=== PATIENT | female | born 1930 | race Caucasian/White ===

== ENCOUNTER 2017-10-04 15:23 | Inpatient (IN) | payer OTHER, MEDICARE ==
[~2017-10-04 15:23] MED LIST: AMLO5TAB22 PO; CALC0.25 PO; CALCTAB32 PO; CENTTAB9 PO; DYAZ PO; GLUC500C3 PO
[2017-10-04 15:30] VITALS: BP 143/58; PULSE 130; RESP 20; TEMP 98; O2SAT 96
[2017-10-04] MEDS ORDERED: METOPROLOL TARTRATE 5 MG/5 ML VIAL IV PUSH ONE ×2 (16:00→16:30)
[2017-10-04 16:02] VITALS: PULSE 144; RESP 20; O2SAT 97
--- NOTE | 2017-10-04 16:12 | PD ---
HPI Chief Complaint: Chest Pain Time Seen by Provider: 15:52 Travel History International Travel<30 days: No Contact w/Intl Traveler<30days: No Traveled to known affect area: No History of Present Illness HPI 87 y/o female presents with chest pain and shortness of breath and sent from her doctor's office for new onset atrial fibrillation with RVR. He denies any other concurrent complaints. She states she is unsure when she was in the abnormal rhythm. She states she has been feeling short of breath and chest pain for a couple of days. She denies prior history of this. Quality is palpitations. Severity is in the 140s. She denies specific modifying factors but is a poor historian. [facility] Past Medical History Hypertension: Yes Past Surgical History Surgical History: No Previous Surgery Social History Alcohol Use: Yes Tobacco Use: No Substance Use: No Allergies-Medications (Allergen,Severity, Reaction): Coded Allergies: No Known Allergies (Verified Allergy, Unknown, 10/04/17) Reported Meds & Prescriptions Reported Meds & Active Scripts Active Reported Glucosamine Sulfate 1,000 Mg Tab 1,000 Mg PO HS Centrum Silver Adult 50+ (Multiple Vitamins W/ Minerals) 0.4 Mg-300 Mcg-250 Mcg Tab 1 Tab PO HS Calcium Citrate - Vit D Tablet (Calcium Citrate/Vitamin D3) 315 Mg Calcium-200 Unit Tablet 1 Tab PO HS Triamterene-Hydrochlorothiazide 37.5-25 Mg Tab 1 Tab PO DAILY Calcitriol 0.25 Mcg Cap 0.25 Mcg PO DAILY Amlodipine (Amlodipine Besylate) 5 Mg Tab 5 Mg PO DAILY Losartan (Losartan Potassium) 50 Mg Tab 50 Mg PO DAILY One Daily (Multiple Vitamin) 1 Tab 1 Tab PO DAILY Review of Systems Except as stated in HPI: all other systems reviewed are Neg Physical Exam Narrative GENERAL: 87-year-old female in no apparent distress SKIN: Focused skin assessment warm/dry. HEAD: Atraumatic. Normocephalic. EYES: No scleral icterus. No injection or drainage. ENT: No nasal bleeding or discharge. Mucous membranes pink and moist. NECK: Trachea midline. CARDIOVASCULAR: irregular rate and rhythm. RESPIRATORY: No accessory muscle use. Clear to auscultation. Breath sounds equal bilaterally at apices. GASTROINTESTINAL: Abdomen soft, non-tender, nondistended. MUSCULOSKELETAL: No obvious deformities. No clubbing. No cyanosis. No significant pedal edema NEUROLOGICAL: Awake. Moves all extremities. Normal speech. Data Data Last Documented VS Vital Signs Date Time Temp Pulse Resp B/P (MAP) Pulse Ox O2 Delivery O2 Flow Rate FiO2 10/04/17 16:30 130 10/04/17 16:13 16 96 Room Air 10/04/17 15:30 98.0 Orders Orders Electrocardiogram (10/04/17 15:33) Basic Metabolic Panel (Bmp) (10/04/17 15:33) Ckmb (Isoenzyme) Profile (10/04/17 15:33) Complete Blood Count With Diff (10/04/17 15:33) Magnesium (Mg) (10/04/17 15:33) Prothrombin Time / Inr (Pt) (10/04/17 15:33) Act Partial Throm Time (Ptt) (10/04/17 15:33) Troponin I (10/04/17 15:33) Chest, Pa & Lat (10/04/17 15:33) Magnesium (Mg) (10/04/17 15:52) Phosphorus (Po4) (10/04/17 15:52) Iv Access Insert/Monitor (10/04/17 15:52) Ecg Monitoring (10/04/17 15:52) Oximetry (10/04/17 15:52) B-Type Natriuretic Peptide (10/04/17 15:59) Metoprolol Tartrate Inj (Lopressor Inj) (10/04/17 16:00) Diltiazem (Cardizem) (10/04/17 16:30) Metoprolol Tartrate Inj (Lopressor Inj) (10/04/17 16:30) CKMB (10/04/17 15:40) CKMB% (10/04/17 15:40) Heparin Inj (Heparin Inj) (10/04/17 23:00) Heparin Inj (Heparin Inj) (10/04/17 23:00) Heparin-D5w 25,000 U/250 Ml (Heparin-D5w (10/04/17 17:00) Cbc No Diff, Includes Plts (10/07/17 06:00) Act Partial Throm Time (Ptt) (10/04/17 23:59) Occult Blood (Hemoccult) Stool (10/04/17 16:59) Admit Order (Ed Use Only) (10/04/17 17:14) Metoprolol Tartrate Inj (Lopressor Inj) (10/04/17 17:15) Diltiazem (Cardizem) (10/05/17 00:00) Labs Laboratory Tests Test 10/04/17 15:40 White Blood Count 8.3 TH/MM3 Red Blood Count 4.22 MIL/MM3 Hemoglobin 13.4 GM/DL Hematocrit 39.8 % Mean Corpuscular Volume 94.4 FL Mean Corpuscular Hemoglobin 31.8 PG Mean Corpuscular Hemoglobin Concent 33.7 % Red Cell Distribution Width 13.9 % Platelet Count 301 TH/MM3 Mean Platelet Volume 8.7 FL Neutrophils (%) (Auto) 63.1 % Lymphocytes (%) (Auto) 22.7 % Monocytes (%) (Auto) 11.4 % Eosinophils (%) (Auto) 2.1 % Basophils (%) (Auto) 0.7 % Neutrophils # (Auto) 5.2 TH/MM3 Lymphocytes # (Auto) 1.9 TH/MM3 Monocytes # (Auto) 0.9 TH/MM3 Eosinophils # (Auto) 0.2 TH/MM3 Basophils # (Auto) 0.1 TH/MM3 CBC Comment DIFF FINAL Differential Comment Prothrombin Time 11.4 SEC Prothromb Time International Ratio 1.1 RATIO Activated Partial Thromboplast Time 24.0 SEC Blood Urea Nitrogen 21 MG/DL Creatinine 1.34 MG/DL Random Glucose 102 MG/DL Calcium Level 10.0 MG/DL Magnesium Level 1.8 MG/DL Sodium Level 141 MEQ/L Potassium Level 4.1 MEQ/L Chloride Level 106 MEQ/L Carbon Dioxide Level 25.0 MEQ/L Anion Gap 10 MEQ/L Estimat Glomerular Filtration Rate 37 ML/MIN Total Creatine Kinase 114 U/L Creatine Kinase MB 3.0 NG/ML Troponin I LESS THAN 0.02 NG/ML MDM Medical Decision Making Medical Screen Exam Complete: Yes Emergency Medical Condition: Yes Medical Record Reviewed: Yes (pmh confirmed) Interpretation(s) EKG is in the 140s with atrial fibrillation without STEMI criteria CBC & BMP Diagram 10/04/17 15:40 Last 24 hours Impressions Chest X-Ray 10/04/17 7005 Signed Impressions: Service Date/Time: Wednesday, October 04, 2017 16:10 - CONCLUSION: No acute disease. Fer Pickett MD Differential Diagnosis Electrolyte abnormality, A. fib, SVT, TN, renal failure Narrative Course We will check blood work, chest x-ray, EKG and dose with IV metoprolol as we are out of IV Cardizem and discuss with cardiology Family updated and patient agrees to admission, will repeat IV metoprolol and give p.o. Cardizem given persistent tachycardia. Critical Care Narrative Aggregate critical care time was 35 minutes. Time to perform other separately billable procedures was not included in the critical care time. My time did not include minutes spent treating any other patients simultaneously or on activities that did not directly contribute to the patient's treatment. The services I provided to this patient were to treat and/or prevent clinically significant deterioration that could result in: Hypertension, TN, I provided critical care services requiring my management, as noted below: Chart data review, documentation time, medication orders and management, vital sign assessments/reviewing monitor data, ordering and reviewing lab tests, ordering and interpreting/reviewing x-rays and diagnostic studies, care of the patient and discussion of the patient with the admitting physicians. Physician Communication Physician Communication dr knox states to stop Norvasc and start on 60 mg of Cardizem every 6 with IV metoprolol as needed and admit to the hospitalist dr phan agrees to prior orders and also requests heparin drip dr flores agrees to admit Diagnosis Primary Impression: Atrial fibrillation with RVR Additional Impression: Chest pain Qualified Codes: R07.9 - Chest pain, unspecified Admitting Information Admitting Physician Requests: Admit Mahnaz Camacho MD Oct 04, 2017 16:12
[2017-10-04 16:13] VITALS: BP 137/79; PULSE 119; RESP 16; O2SAT 96
[2017-10-04 16:16] LABS: AUTOMATED NEUTROPHIL # 5.2 TH/MM3 (1.8-7.7); BASOPHIL # 0.1 TH/MM3 (0-0.2); BASOPHIL % 0.7 % (0.0-2.0); EOSINOPHIL # 0.2 TH/MM3 (0-0.4); EOSINOPHIL % 2.1 % (0.0-4.0); HEMATOCRIT 39.8 % (35.0-46.0); HEMOGLOBIN 13.4 GM/DL (11.6-15.3); LYMPH % 22.7 % (9.0-44.0); LYMPHOCYTE # 1.9 TH/MM3 (1.0-4.8); MEAN CELL VOLUME 94.4 FL (80.0-100.0); MEAN CORPUSCULAR HEMOGLOBIN 31.8 PG (27.0-34.0); MEAN CORPUSCULAR HGB CONC 33.7 % (32.0-36.0); MEAN PLATELET VOLUME 8.7 FL (7.0-11.0); MONO % 11.4 % (0.0-8.0); MONOCYTE # 0.9 TH/MM3 (0-0.9); NEUT % 63.1 % (16.0-70.0); PLATELET COUNT 301 TH/MM3 (150-450); RED BLOOD COUNT 4.22 MIL/MM3 (4.00-5.30); RED CELL DISTRIBUTION WIDTH 13.9 % (11.6-17.2); WHITE BLOOD COUNT 8.3 TH/MM3 (4.0-11.0)
--- NOTE | 2017-10-04 16:18 | RADRPT ---
EXAM DATE/TIME: 10/04/2017 16:10 [facility] COMPARISON: No previous studies available for comparison. INDICATIONS : Chest pain since last week. MEDICAL HISTORY : Hypertension. SURGICAL HISTORY : None. ENCOUNTER: Initial ACUITY: 1 week PAIN SCORE: 3/10 LOCATION: Bilateral chest FINDINGS: PA and lateral views of the chest demonstrate the lungs to be symmetrically aerated without evidence of mass, infiltrate or effusion. The cardiomediastinal contours are unremarkable. Osseous structure s are intact. CONCLUSION: No acute disease. Fer Pickett MD on October 04, 2017 at 16:16 Board Certified Radiologist. This report was verified electronically.
[2017-10-04 16:29] LABS: INTERNATIONAL NORMALIZED RATIO 1.1 RATIO; PROTHROMBIN TIME - PATIENT 11.4 SEC (9.8-11.6)
[2017-10-04 16:30] VITALS: PULSE 130
[2017-10-04] MEDS ORDERED: DILTIAZEM HCL 60 MG TAB PO ONE (16:30)
[2017-10-04 16:41] LABS: BLOOD UREA NITROGEN 21 MG/DL (7-18); CHLORIDE 106 MEQ/L (98-107); CREATININE 1.34 MG/DL (0.50-1.00); GLOMERULAR FILTRATION RATE 37 ML/MIN (>89); GLUCOSE,RANDOM 102 MG/DL (74-106); MAGNESIUM 1.8 MG/DL (1.5-2.5); SODIUM (NA) 141 MEQ/L (136-145)
[2017-10-04 16:45] LABS: TROPONIN I LESS THAN 0.02 NG/ML (0.02-0.05)
[2017-10-04] MEDS ORDERED: HEPARIN-D5W 25,000 U/250 ML 250 ML IV PRN (17:00)
[2017-10-04] MEDS ORDERED: BISACODYL 10 MG SUPP RECTAL PRN (17:15)
[2017-10-04] MEDS ORDERED: SENNOSIDES 8.6 MG TAB PO PRN (17:15)
[2017-10-04] MEDS ORDERED: LACTULOSE SYRUP 20 GM/30 ML CUP PO PRN (17:15)
[2017-10-04] MEDS ORDERED: METOPROLOL TARTRATE 5 MG/5 ML VIAL IV PUSH PRN (17:15)
[2017-10-04] MEDS ORDERED: NALOXONE HCL 0.4 MG/ML AMP IV PUSH PRN (17:15)
[2017-10-04] MEDS ORDERED: MAGNESIUM HYDROXIDE SUSP 30 ML CUP PO PRN (17:15)
[2017-10-04] MEDS ORDERED: SODIUM CHLORIDE 0.9% FLUSH 10 ML FLUSH IV FLUSH PRN (17:15)
[2017-10-04] MEDS ORDERED: LOSA50TA PO (17:24)
[2017-10-04] MEDS ORDERED: TRIA37.5 PO (17:24)
[2017-10-04] MEDS ORDERED: CALCTAB PO (17:24)
[2017-10-04] MEDS ORDERED: MULT-207 PO (17:24)
[2017-10-04] MEDS ORDERED: CALC0.25 PO (17:24)
[2017-10-04] MEDS ORDERED: GLUC1TAB16 PO (17:24)
[2017-10-04] MEDS ORDERED: MULT1TAB PO (17:24)
[2017-10-04] MEDS ORDERED: AMLO5TAB2 PO (17:24)
--- NOTE | 2017-10-04 18:21 | HHI.HP ---
HPI Service [facility] Primary Care Physician Meenakshi Sandoval MD Admission Diagnosis Atrial flutter with RVR, chest pain Diagnoses: (1) Atrial fibrillation with RVR Diagnosis: Principal (2) Chest pain Diagnosis: Principal (3) SOB (shortness of breath) on exertion Chief Complaint: My doctor sent me here Travel History International Travel<30 Days: No Contact w/Intl Traveler <30 Da: No Traveled to Known Affected Are: No History of Present Illness Written by Fina Mcnamara, acting as scribe for Dr. Bernal on 10/04/17 at 17:54. 87-year-old female with PMH of HTN who presents to the ER today with complaint of increased SOB and chest pain for the past week. Patient states that today she decided to go see her primary doctor and was told that her heart rate was not normal and that she needed to go to the ER today. SOB is worse with activity and accompanied with chest pain. Chest pain is better with rest and SOB is better when she is lying. She has also been feeling fatigued. Repots that chest pain and SOB stopped when she arrived to the ER. Patient denies any fevers, chills, nausea, vomiting, constipation, dizziness, lightheadedness or headache. She repots that she drinks 1-2 glasses of red wine nightly and quit this about a week ago as she felt this may be related to her symptoms of fatigue , SOB and chest pain. She denies any recent changes to her medications. Review of Systems Except as stated in HPI: all other systems reviewed are Neg Past Family Social History Past Medical History HTN Past Surgical History Hysterectomy Sinus surgery Reported Medications Reported Meds & Active Scripts Active Reported Glucosamine Sulfate 1,000 Mg Tab 1,000 Mg PO HS Centrum Silver Adult 50+ (Multiple Vitamins W/ Minerals) 0.4 Mg-300 Mcg-250 Mcg Tab 1 Tab PO HS Calcium Citrate - Vit D Tablet (Calcium Citrate/Vitamin D3) 315 Mg Calcium-200 Unit Tablet 1 Tab PO HS Triamterene-Hydrochlorothiazide 37.5-25 Mg Tab 1 Tab PO DAILY Calcitriol 0.25 Mcg Cap 0.25 Mcg PO DAILY Amlodipine (Amlodipine Besylate) 5 Mg Tab 5 Mg PO DAILY Losartan (Losartan Potassium) 50 Mg Tab 50 Mg PO DAILY One Daily (Multiple Vitamin) 1 Tab 1 Tab PO DAILY Allergies: Coded Allergies: No Known Allergies (Verified Allergy, Unknown, 10/04/17) Family History Father: Lung CA (smoker) Mother: stroke Social History Tobacco: quit in the 70's Alcohol: 1-2 glasses of red wine per night Illicit drug use: denies Physical Exam Vital Signs Vital Signs Date Time Temp Pulse Resp B/P (MAP) Pulse Ox O2 Delivery O2 Flow Rate FiO2 10/04/17 16:30 130 10/04/17 16:13 119 16 137/79 (98) 96 Room Air 10/04/17 16:02 145 16 97 Room Air 10/04/17 16:02 144 20 97 Room Air 10/04/17 16:02 144 20 97 Room Air 10/04/17 15:30 98.0 130 20 143/58 (86) 96 Physical Exam GENERAL: This is a well-nourished, well-developed elderly female, in no apparent distress. SKIN: No rashes, ecchymoses or lesions. Cool and dry. HEAD: Atraumatic. Normocephalic. EYES: Pupils equal round and reactive. Extraocular motions intact. No scleral icterus. No injection or drainage. ENT: Nose without bleeding, purulent drainage. Throat without erythema. Uvula midline. Airway patent. NECK: Trachea midline. No JVD or lymphadenopathy. Supple, nontender. CARDIOVASCULAR: Irregular rate and rhythm without murmurs, gallops, or rubs. RESPIRATORY: Bilateral base crackles. Breath sounds equal bilaterally. No wheezes, rales, or rhonchi. GASTROINTESTINAL: Abdomen soft, non-tender, nondistended. No palpable masses. No guarding. MUSCULOSKELETAL: Extremities without clubbing, cyanosis, or edema. No joint tenderness, effusion, or edema noted. No calf tenderness. NEUROLOGICAL: Awake and alert. Cranial nerves II through XII grossly intact. Motor and sensory grossly within normal limits. Five out of 5 muscle strength in all muscle groups. Normal speech. Laboratory Laboratory Tests Test 10/04/17 15:40 White Blood Count 8.3 Red Blood Count 4.22 Hemoglobin 13.4 Hematocrit 39.8 Mean Corpuscular Volume 94.4 Mean Corpuscular Hemoglobin 31.8 Mean Corpuscular Hemoglobin Concent 33.7 Red Cell Distribution Width 13.9 Platelet Count 301 Mean Platelet Volume 8.7 Neutrophils (%) (Auto) 63.1 Lymphocytes (%) (Auto) 22.7 Monocytes (%) (Auto) 11.4 Eosinophils (%) (Auto) 2.1 Basophils (%) (Auto) 0.7 Neutrophils # (Auto) 5.2 Lymphocytes # (Auto) 1.9 Monocytes # (Auto) 0.9 Eosinophils # (Auto) 0.2 Basophils # (Auto) 0.1 CBC Comment DIFF FINAL Differential Comment Prothrombin Time 11.4 Prothromb Time International Ratio 1.1 Activated Partial Thromboplast Time 24.0 Blood Urea Nitrogen 21 Creatinine 1.34 Random Glucose 102 Calcium Level 10.0 Magnesium Level 1.8 Sodium Level 141 Potassium Level 4.1 Chloride Level 106 Carbon Dioxide Level 25.0 Anion Gap 10 Estimat Glomerular Filtration Rate 37 Total Creatine Kinase 114 Creatine Kinase MB 3.0 Troponin I LESS THAN 0.02 Result Diagram: 10/04/17 1540 10/04/17 1540 Imaging Last Impressions Chest X-Ray 10/04/17 1533 Signed Impressions: Service Date/Time: Wednesday, October 04, 2017 16:10 - CONCLUSION: No acute disease. MD Greg Glassi VTE Risk Assessment Caprini VTE Risk Assessment: Mod/High Risk (score >= 2) Caprini Risk Assessment Model Point Value = 1 Point Value = 2 Point Value = 3 Point Value = 5 Age 41-60 Minor surgery BMI > 25 kg/m2 Swollen legs Varicose veins or History of unexplained or recurrent spontaneous Oral contraceptives or hormone replacement Sepsis (< 1 month) Serious lung disease, including pneumonia (< 1 month) Abnormal pulmonary function Acute myocardial infarction Congestive heart failure (< 1 month) History of inflammatory bowel disease Medical patient at bed rest Age 61-74 Arthroscopic surgery Major open surgery (> 45 min) Laparoscopic surgery (> 45 min) Malignancy Confined to bed (> 72 hours) Immobilizing plaster cast Central venous access Age >= 75 History of VTE Family history of VTE Factor V Leiden Prothrombin [id number] Lupus anticoagulant Anticardiolipin antibodies Elevated serum homocysteine Heparin-induced thrombocytopenia Other congenital or acquired thrombophilia Stroke (< 1 month) Elective arthroplasty Hip, pelvis, or leg fracture Acute spinal cord injury (< 1 month) Prophylaxis Regimen Total Risk Factor Score Risk Level Prophylaxis Regimen 0-1 Low Early ambulation 2 Moderate Order ONE of the following: *Sequential Compression Device (SCD) *Heparin 5000 units SQ BID 3-4 Higher Order ONE of the following medications: *Heparin 5000 units SQ TID *Enoxaparin/Lovenox 40 mg SQ daily (WT < 150 kg, CrCl > 30 mL/min) *Enoxaparin/Lovenox 30 mg SQ daily (WT < 150 kg, CrCl > 10-29 mL/min) *Enoxaparin/Lovenox 30 mg SQ BID (WT < 150 kg, CrCl > 30 mL/min) AND/OR *Sequential Compression Device (SCD) 5 or more Highest Order ONE of the following medications: *Heparin 5000 units SQ TID (Preferred with Epidurals) *Enoxaparin/Lovenox 40 mg SQ daily (WT < 150 kg, CrCl > 30 mL/min) *Enoxaparin/Lovenox 30 mg SQ daily (WT < 150 kg, CrCl > 10-29 mL/min) *Enoxaparin/Lovenox 30 mg SQ BID (WT < 150 kg, CrCl > 30 mL/min) AND *Sequential Compression Device (SCD) Assessment and Plan Assessment and Plan 87-year-old female with PMH of HTN sent to the ER due to new onset of a.fib with RVR. A.fib w/ RVR, new onset Atypical chest pain - HR on admission was 130, still remains high - EKG personally reviewed, a.fib with RVR, HR 147, no evidence to STEMI - CBC stable, BMP with electrolytes unremarkable. Troponin negative - Patient received 2.5mg of IV Metoprolol while in the ED along with Cardizem 60mg PO (hospital has been out of IV Cardizem) - ER provider discussed with and . Patient has been placed on Cardizem 60mg PO Q6hrs, PRN Metoprolol IV for HR control and Heparin gtt. Norvasc on hold - Cardiology consult placed, appreciate ongoing recommendations SOB - Likely related to a.fib with RVA and elevated HR - Chest x-ray personally reviewed, negative for acute process. - Oxygen saturation in the high 90's on room air - resolved since she has arrived to ER, continue to monitor, NC if needed to keep o2 sats >92 AIDEN - BUN 21, creatinine 1.34, GFR 97, likely from poor PO intake - Follow renal function, encourage PO fluids Alcohol consumption - Drinks 1-2 glasses of red wine per night - Discussed cutting back to only one glass per night DVT prophylaxis- Heparine gtt Discussed Condition With ER physician and patient Physician Certification 2 Midnight Certification Type: Admission for Inpatient Services Order for Inpatient Services The services are ordered in accordance with Medicare regulations or non- Medicare payer requirements, as applicable. In the case of services not specified as inpatient-only, they are appropriately provided as inpatient services in accordance with the 2-midnight benchmark. Estimated LOS (days): 2 days is the estimated time the patient will need to remain in the hospital, assuming treatment plan goals are met and no additional complications. Post-Hospital Plan: Home Notes: This note was transcribed by jody Mcnamara. I, Dr. Abbe Bernal personally performed the history, physical exam, and medical decision making; and confirmed the accuracy of the information in the transcribed note. Authenticated by Dr. Abbe Bernal on 10/04/17 at 22:10. Problem Qualifiers (1) Chest pain: Qualified Codes: R07.9 - Chest pain, unspecified Fina Mcnamara Oct 04, 2017 18:21 Abbe Bernal MD Oct 04, 2017 22:11
[2017-10-04 18:28] VITALS: BP 107/75; PULSE 109; RESP 16; O2SAT 98
[2017-10-04] MEDS: SODIUM CHLORIDE 0.9% FLUSH 10 ML FLUSH IV FLUSH SCH (21:00)
[2017-10-04 21:37] VITALS: BP 119/58; PULSE 92; RESP 16; TEMP 98; O2SAT 97
[2017-10-04] MEDS ORDERED: HEPARIN SODIUM - IV 10,000 UNITS/10 ML VIAL IV PRN (23:00)
[2017-10-04] MEDS ORDERED: HEPARIN - 10,000 UNITS/ML IV ADDITIVE IV PRN (23:00)
[2017-10-04 23:23] LABS: PHOSPHORUS 3.1 MG/DL (2.5-4.9)
[2017-10-05] VITALS (7 sets, daily range): BP systolic 114–129; BP diastolic 59–64; PULSE 71–109; RESP 16–22; TEMP 97.7–98.7; O2SAT 94–99
[2017-10-05] MEDS: DILTIAZEM HCL 60 MG TAB PO SCH ×5 (07:24→23:54)
[2017-10-05] MEDS ORDERED: METOPROLOL TARTRATE 5 MG/5 ML VIAL IV PUSH ONE (08:15)
--- NOTE | 2017-10-05 08:25 | MB ---
cc: Oren Guidry MD DATE: 10/05/2017 REASON FOR CONSULTATION: Atrial fibrillation, chest pain. HISTORY OF PRESENT ILLNESS: The patient is an 87-year-old active white female with a history of hypertension, who was in her usual state of health up until about a week ago when she began to experience increasing dyspnea on exertion as well as a sensation of chest pressure. The chest pressure has been fairly constant through the last several days and is worsened by ambulation. She was in her primary care physician's office yesterday and she was found to be tachycardic, so she was sent to the emergency department where she was found to be in atrial fibrillation with a rapid ventricular response. The patient denies palpitations, dizziness, syncope, or near syncope, pedal edema, paroxysmal nocturnal dyspnea. PAST MEDICAL HISTORY: Hypertension. PAST SURGICAL HISTORY: 1. Hysterectomy. 2. Sinus surgery. CARDIAC MEDICATIONS AT HOME: Amlodipine 5 mg daily, losartan 50 mg daily, Maxzide 1 daily. ALLERGIES: NO KNOWN DRUG ALLERGIES. FAMILY HISTORY: Noncontributory. SOCIAL HISTORY: The patient is a former smoker. There is no history of alcohol abuse. REVIEW OF SYSTEMS: As in the history of present illness, otherwise negative or noncontributory. She also denies headache, melena, bright red blood per rectum, occasionally she does experience "heartburn" for which she uses antacids with prompt relief. PHYSICAL EXAMINATION: VITAL SIGNS: Her blood pressure 118/63 with a pulse of 108, respirations 17. GENERAL: She is a well-developed, thin white female, in no acute distress. NECK: Jugular venous pressure is normal. Carotid pulses are 2+ bilaterally and without bruits. CHEST: Reveals clear lungs holden. CARDIAC: She has an irregularly irregular rhythm without S3 or murmur. ABDOMEN: She has a soft, nontender abdomen. Bowel sounds are present. There is no definite hepatosplenomegaly. EXTREMITIES: Reveals no clubbing, cyanosis or edema. LABORATORY DATA: EKG shows atrial fibrillation with a rapid ventricular response, nonspecific ST and T-wave abnormalities. Laboratory data includes potassium 4.1, BUN 21, creatinine 1.34. CK 114, troponin less than 0.02. Normal CBC. IMPRESSION: Paroxysmal atrial fibrillation, somewhat atypical chest pains in this 87-year-old white female with a history of hypertension. At this time, she remains in atrial fibrillation with slightly to mildly increased heart rates. Cardiac enzymes are negative for myocardial infarction despite prolonged episodes of chest discomfort in the last several days. She has no other signs or symptoms of congestive heart failure. The etiology of her atrial fibrillation may be hypertension. Echocardiogram is pending. Overall, her thromboembolic risk is moderately elevated with her advanced age and history of hypertension. RECOMMENDATIONS: 1. Anticoagulation therapy. At this point, the patient declines taking anticoagulation therapy and would like to be treated with daily aspirin. 2. Continue oral Cardizem and add a beta ang. 3. Check a Lexiscan nuclear stress test to assess for any myocardial ischemia. Overall, would recommend conservative medical therapy unless there is extensive ischemia. 4. Check a 2-D echo to assess her left ventricular function. Oren Guidry MD [facility] , 08:07 AM , 08:24 AM [facility]
[2017-10-05] MEDS ORDERED: ASPIRIN EC 81 MG TABEC PO SCH (09:00)
[2017-10-05] MEDS: SODIUM CHLORIDE 0.9% FLUSH 10 ML FLUSH IV FLUSH SCH ×2 (09:00→20:02)
[2017-10-05] MEDS ORDERED: PILL SPLITTER OTHER PRN (09:00)
[2017-10-05] MEDS: METOPROLOL TARTRATE 25 MG TAB PO SCH ×2 (09:00→20:01)
[2017-10-05] MEDS ORDERED: REGADENOSON INJ 0.4 MG/5 ML SYR ONE (09:37)
[2017-10-05 09:48] LABS: ALBUMIN 3.4 GM/DL (3.4-5.0); AST (GOT) 44 U/L (15-37); BICARBONATE 28.4 MEQ/L (21.0-32.0); BLOOD UREA NITROGEN 21 MG/DL (7-18); CALCIUM 9.6 MG/DL (8.5-10.1); CHLORIDE 104 MEQ/L (98-107); CREATININE 1.11 MG/DL (0.50-1.00); GLOMERULAR FILTRATION RATE 46 ML/MIN (>89); GLUCOSE,RANDOM 104 MG/DL (74-106); SODIUM (NA) 139 MEQ/L (136-145)
[2017-10-05 09:53] LABS: ALKALINE PHOSPHATASE 65 U/L (45-117); ALT (GPT) 63 U/L (10-53); TOTAL BILIRUBIN ADULT 0.6 MG/DL (0.2-1.0); TOTAL PROTEIN 7.2 GM/DL (6.4-8.2)
--- NOTE | 2017-10-05 11:16 | RADRPT ---
EXAM DATE/TIME: 10/05/2017 09:48 [facility] COMPARISON: No previous studies available for comparison. INDICATIONS : Substernal chest pain. Angina. Abnormal EKG. DOSE: 26.5 mCi Tc99m Myoview at stress. 8.1 mCi Tc99m Myoview at rest. 0.4 mg Lexiscan STRESS SYMPTOMS: Chest heaviness and dyspnea. EJECTION FRACTION: > 70% MEDICAL HISTORY : Hypertension. SURGICAL HISTORY : Hysterectomy. ENCOUNTER: Initial ACUITY: 1 day PAIN SCALE: 4/10 LOCATION: Substernal chest TECHNIQUE: The patient underwent pharmacologic stress with infusion of prescribed dose. Continuous ECG tracing was monitored during stress. Gated SPECT imaging was performed after stress and conventional SPECT i maging was performed at rest. The examination was performed on a SPECT/CT scanner, both attenuation and non-corrected datasets were reviewed. FINDINGS: DISTRIBUTION: The maximum perfused segment at stress is in the lateral wall. PERFUSION STUDY: The pattern of perfusion at stress is within normal limits. GATED STUDY: There is intact wall motion and thickening without hypokinetic or dyskinetic segments. CONCLUSION: Normal examination. RISK CATEGORY: Low (<1% Annual Mortality Rate) Duy Noe MD on October 05, 2017 at 11:10 Board Certified Radiologist. This report was verified electronically.
--- NOTE | 2017-10-05 15:19 | HHI.PR ---
Subjective Remarks Patient resting in bed denied any chest pain or palpitation dizziness or lightheadedness I discussed with the son who was at the bedside Him and the patient reported worsening dyspnea on exertion with leg swelling lately we are waiting on 2D echo to assess her heart capacity Objective Vitals Vital Signs Date Time Temp Pulse Resp B/P (MAP) Pulse Ox O2 Delivery O2 Flow Rate FiO2 10/05/17 14:12 97.7 71 17 129/62 (84) 95 10/05/17 13:38 97.8 79 18 124/60 (81) 95 10/05/17 11:15 89 20 129/64 (85) 94 Room Air 10/05/17 07:25 109 17 118/63 (81) 99 Room Air 10/05/17 05:49 94 22 114/64 (81) 97 Room Air 10/05/17 02:32 98.7 100 16 122/59 (80) 95 Room Air 10/04/17 21:37 98.0 92 16 119/58 (78) 97 Room Air 10/04/17 18:28 109 16 107/75 (86) 98 Room Air 10/04/17 16:30 130 10/04/17 16:13 119 16 137/79 (98) 96 Room Air 10/04/17 16:02 145 16 97 Room Air 10/04/17 16:02 144 20 97 Room Air 10/04/17 16:02 144 20 97 Room Air 10/04/17 15:30 98.0 130 20 143/58 (86) 96 Result Diagram: 10/04/17 1540 10/05/17 0900 Objective Remarks GENERAL: This is a well-nourished, well-developed patient, in no apparent distress. SKIN: No rashes, warm and dry HEAD: Atraumatic. Normocephalic. EYES: Pupils equal round and reactive. Extraocular motions intact. No scleral icterus. ENT: Nose without bleeding, or drainage, Airway patent. NECK: Trachea midline. Supple CARDIOVASCULAR: Regular rate and rhythm without murmurs, gallops, or rubs. RESPIRATORY: Fair air entry bilaterally. No wheezes, rales, or rhonchi. GASTROINTESTINAL: Abdomen soft, non-tender, nondistended. Positive bowel sounds MUSCULOSKELETAL: Extremities without clubbing, cyanosis, or edema. Pedal pulses appreciated NEUROLOGICAL: Awake and alert. Moves all extremity. Normal speech.no focal neurological deficit A/P Problem List: (1) Atrial fibrillation with RVR ICD Code: I48.91 - Unspecified atrial fibrillation Status: Acute (2) Chest pain ICD Code: R07.9 - Chest pain, unspecified Status: Acute (3) SOB (shortness of breath) on exertion ICD Code: R06.02 - Shortness of breath Assessment and Plan 87-year-old female with PMH of HTN sent to the ER due to new onset of a.fib with RVR. A.fib w/ RVR, new onset Atypical chest pain - HR on admission was 130, still remains high - EKG personally reviewed, a.fib with RVR, HR 147, no evidence to STEMI - CBC stable, BMP with electrolytes unremarkable. Troponin negative - Patient received 2.5mg of IV Metoprolol while in the ED along with Cardizem 60mg PO (hospital has been out of IV Cardizem) -. Patient has been placed on Cardizem 60mg PO Q6hrs, PRN Metoprolol IV for HR control and Heparin gtt. Norvasc on hold -Appreciate cardiology consultation, status post stress test low probability , patient's need to be on anticoagulation however I discussed with her extensively and explained the risk of both ways and she adamantly wants to be only on aspirin Awaiting 2D echo Dyspnea on exertion -Could be related to a.fib with RVA but still need to rule out underlying CHF - Chest x-ray personally reviewed, negative for acute process. - Oxygen saturation in the high 90's on room air AIDEN -Improved creatinine dropped from 1.34-1.11 - Follow renal function, encourage PO fluids Alcohol consumption - Drinks 1-2 glasses of red wine per night - Discussed cutting back to only one glass per night DVT prophylaxis- Heparine gtt Discharge Planning Awaiting 2D echo Problem Qualifiers (1) Chest pain: Qualified Codes: R07.9 - Chest pain, unspecified Miguel Denins MD Oct 05, 2017 15:19
--- NOTE | 2017-10-05 19:20 | ECHRPT ---
Indication: CONCLUSIONS Normal left ventricular size. Wall thickness is normal. The left ventricular systolic function is low normal with an estimated ejection fraction in the rang e of 50- 55%. Mitral annular calcification is present. Mild mitral valve regurgitation. Mild to moderate aortic valve regurgitation. Aortic valve sclerosis is present. There is mild to moderate tricuspid regurgitation. The estimated pulmonary arterial pressure is 34 mmHg. BP: / HR: Rhythm: MEASUREMENTS (Male / Female) Normal Values Technical Quality: 2D ECHO LV Diastolic Diameter PLAX 4.3 cm 4.2 - 5.9 / 3.9 - 5.3 cm LV Systolic Diameter PLAX 3.3 cm IVS Diastolic Thickness 1.1 cm 0.6 - 1.0 / 0.6 - 0.9 cm LVPW Diastolic Thickness 0.7 cm 0.6 - 1.0 / 0.6 - 0.9 cm LV Relative Wall Thickness 0.4 RV Internal Dim ED PLAX 1.9 cm LA Systolic Diameter LX 2.6 cm 3.0 - 4.0 / 2.7 - 3.8 cm DOPPLER Mitral E Point Velocity 76.0 cm/s Mitral A Point Velocity 37.0 cm/s Mitral E to A Ratio 2.1 TR Peak Velocity 269.0 cm/s TR Peak Gradient 28.9 mmHg Right Atrial Pressure 5.0 mmHg Pulmonary Artery Systolic Pressu 33.9 mmHg Right Ventricular Systolic Press 33.9 mmHg FINDINGS LEFT VENTRICLE Normal left ventricular size. Wall thickness is normal. The left ventricular systolic function is low normal with an estimated ejection fraction in the rang e of 50- 55%. RIGHT VENTRICLE Normal right ventricular size and systolic function. LEFT ATRIUM The left atrial size is normal. RIGHT ATRIUM The right atrial size is normal. ATRIAL SEPTUM Normal atrial septal thickness without atrial level shunting by limited color doppler interrogation. AORTA The aortic root and proximal ascending aorta are normal in size on limited imaging. MITRAL VALVE Mitral annular calcification is present. Mild mitral valve regurgitation. AORTIC VALVE Mild to moderate aortic valve regurgitation. Aortic valve sclerosis is present. TRICUSPID VALVE There is mild to moderate tricuspid regurgitation. The estimated pulmonary arterial pressure is 34 mmHg. PULMONARY VALVE No pulmonary valve regurgitation or stenosis. VESSELS The inferior vena cava is normal in size. PERICARDIUM No pericardial effusion. Lorraine Rogers MD, FACC (Electronically Signed) Final Date:05 October 2017 19:19
--- NOTE | 2017-10-05 22:54 | EKG ---
Date Performed: 10/04/2017 Time Performed: 15:45:18 PTAGE: 87 years EKG: ATRIAL FIBRILLATION WITH RAPID VENTRICULAR RESPONSE NONSPECIFIC ST & T-WAVE ABNORMALITY ABN ORMAL RHYTHM ECG NO PREVIOUS TRACING DOCTOR: Lorraine Rogers Interpretating Date/Time 10/05/2017 22:53:15
[2017-10-06] VITALS: BP 123/76; PULSE 81; PULSE 90; RESP 18; TEMP 99.8; O2SAT 95
[2017-10-06 04:00] VITALS: BP 126/73; PULSE 68; PULSE 82; RESP 19; TEMP 97.7; O2SAT 97
[2017-10-06] MEDS: DILTIAZEM HCL 60 MG TAB PO SCH (05:34)
[2017-10-06 07:00] VITALS: BP 129/66; PULSE 83; RESP 16; TEMP 97.5; O2SAT 95
[2017-10-06 08:00] VITALS: PULSE 95
--- NOTE | 2017-10-06 08:24 | PD.CARD.PN ---
Subjective Subjective Remarks Slight substernal CP this morning, increases with deep inspiration. No SOB, dizziness, palpitations. Slept well. Objective Medications Item Value Date Time Metoprolol 12.5 mg 10/05/1700 Tartrate Q12HR/PO 10/05/172000 (Lopressor) Aspirin 162 mg 10/05/17899 (Ecotrin Ec) DAILY/PO 10/05/17 09 Diltiazem HCl 60 mg 10/05/17 0000 (Cardizem) Q6HR/PO 10/06/17 0534 Current Medications Medications (Trade) Dose Ordered Sig/Evita Route Start Time Stop Time Status Last Admin (Heparin Inj) 5,000 units UNSCH PRN IV 10/04/17 23:00 (Heparin Inj) 2,500 units UNSCH PRN IV 10/04/17 23:00 10/05/17 11:22 Heparin Sodium/ Dextrose 250 ml @ 8 mls/hr TITRATE PRN IV 10/04/17 17:00 10/05/17 02:44 (Cardizem) 60 mg Q6HR PO 10/05/17 00:00 10/06/17 05:34 (Lopressor Inj) 5 mg Q5M PRN IV PUSH 10/04/17 17:15 (NS Flush) 2 ml UNSCH PRN IV FLUSH 10/04/17 17:15 (NS Flush) 2 ml BID IV FLUSH 10/04/17 21:00 (Narcan Inj) 0.4 mg UNSCH PRN IV PUSH 10/04/17 17:15 (Milk Of Magnesia Liq) 30 ml Q12H PRN PO 10/04/17 17:15 (Senokot) 17.2 mg Q12H PRN PO 10/04/17 17:15 (Dulcolax Supp) 10 mg DAILY PRN RECTAL 10/04/17 17:15 (Lactulose Liq) 30 ml DAILY PRN PO 10/04/17 17:15 (Lopressor) 12.5 mg Q12HR PO 10/05/17 09:00 10/05/17 20:01 (Ecotrin Ec) 162 mg DAILY PO 10/05/17 09:00 10/05/17 09:00 (Pill Splitter) 1 ea UNSCH PRN OTHER 10/05/17 09:00 Vital Signs / I&O Vital Signs Date Time Temp Pulse Resp B/P (MAP) Pulse Ox O2 Delivery O2 Flow Rate FiO2 10/06/17 04:00 Room Air 10/06/17 04:00 82 10/06/17 04:00 97.7 68 19 126/73 (90) 97 10/06/17 00:00 90 10/06/17 00:00 Room Air 10/06/17 00:00 99.8 81 18 123/76 (92) 95 10/05/17 20:00 Room Air 10/05/17 20:00 75 10/05/17 14:12 97.7 71 17 129/62 (84) 95 10/05/17 13:38 97.8 79 18 124/60 (81) 95 10/05/17 11:15 89 20 129/64 (85) 94 Room Air I/O 10/05/17 10/05/17 10/05/17 10/06/17 10/06/17 10/06/17 07:00 15:00 23:00 07:00 15:00 23:00 Intake Total 228 ml Balance 228 ml Intake Oral 120 ml IV Total 108 ml # Voids 2 # Bowel Movements 0 Physical Exam GENERAL: Well developed, thin. No acute distress. HEENT: Jugular venous pressure is normal. CHEST: Lungs clear to auscultation bilaterally. CARDIAC: Irregular rate and rhythm without S3, S4, or murmur. ABDOMEN: Soft, nontender, no hepatosplenomegaly. Bowel sounds present. EXTREMITIES: No clubbing, cyanosis, or edema. Laboratory Laboratory Tests Test 10/05/17 09:00 10/05/17 17:33 10/06/17 00:20 Activated Partial Thromboplast Time 28.5 SEC 64.1 SEC 65.5 SEC Blood Urea Nitrogen 21 MG/DL Creatinine 1.11 MG/DL Random Glucose 104 MG/DL Total Protein 7.2 GM/DL Albumin 3.4 GM/DL Calcium Level 9.6 MG/DL Alkaline Phosphatase 65 U/L Aspartate Amino Transf (AST/SGOT) 44 U/L Alanine Aminotransferase (ALT/SGPT) 63 U/L Total Bilirubin 0.6 MG/DL Sodium Level 139 MEQ/L Potassium Level 4.3 MEQ/L Chloride Level 104 MEQ/L Carbon Dioxide Level 28.4 MEQ/L Anion Gap 7 MEQ/L Estimat Glomerular Filtration Rate 46 ML/MIN Assessment and Plan Problem List: (1) Paroxysmal atrial fibrillation ICD Codes: I48.0 - Paroxysmal atrial fibrillation Status: Acute Plan: Remains in atrial fib, mostly controlled HR's. Patient's thromboembolic risk probably at least moderately elevated with advanced age, history of hypertension. Discussed anticoagulation therapy, risks of CVA with patient again. She agrees to taking apixaban. REC OK to discharge later today on apixaban 5 mg bid continue metoprolol; change diltiazem to Cardizem CD 3-4 week f/u with me (2) Chest pain ICD Codes: R07.9 - Chest pain, unspecified Status: Acute Plan: Brief atypical CP this morning, some increase with deep inspiration. Normal nuclear stress test yesterday. (3) Hypertension ICD Codes: I10 - Essential (primary) hypertension Status: Chronic Plan: Stable. Normotensive. Code Status full code Discussed Condition With patient Problem Qualifiers (1) Chest pain: Qualified Codes: R07.9 - Chest pain, unspecified (2) Hypertension: Qualified Codes: I10 - Essential (primary) hypertension Oren Guidry MD Oct 06, 2017 08:24
[2017-10-06] MEDS ORDERED: APIXABAN 5 MG TABLET PO SCH (09:00)
[2017-10-06] MEDS ORDERED: DILTIAZEM-CD 240 MG CAP ER PO SCH (09:00)
[2017-10-06] MEDS: METOPROLOL TARTRATE 25 MG TAB PO SCH (09:01)
[2017-10-06] MEDS: SODIUM CHLORIDE 0.9% FLUSH 10 ML FLUSH IV FLUSH SCH (09:03)
[2017-10-06 11:00] VITALS: BP 105/57; PULSE 92; RESP 16; TEMP 97.7; O2SAT 94
[2017-10-06] MEDS ORDERED: METO25TA3 PO (11:39)
[2017-10-06] MEDS ORDERED: APIX5TAB PO (11:39)
[2017-10-06] MEDS ORDERED: DILT240C44 PO (11:42)
--- NOTE | 2017-10-06 11:43 | HHI.DS ---
Discharge Summary Admission Date Oct 04, 2017 at 17:15 Discharge Date: Oct 06, 2017 Admitting Diagnosis Atrial flutter with RVR, chest pain (1) Atrial fibrillation with RVR ICD Code: I48.91 - Unspecified atrial fibrillation Diagnosis: Principal Status: Acute (2) Chest pain ICD Code: R07.9 - Chest pain, unspecified Diagnosis: Principal Status: Acute (3) SOB (shortness of breath) on exertion ICD Code: R06.02 - Shortness of breath Procedures none Brief History - From Admission Written by Fina Mcnamara, acting as scribe for Dr. Bernal on 10/04/17 at 17:54. 87-year-old female with PMH of HTN who presents to the ER today with complaint of increased SOB and chest pain for the past week. Patient states that today she decided to go see her primary doctor and was told that her heart rate was not normal and that she needed to go to the ER today. SOB is worse with activity and accompanied with chest pain. Chest pain is better with rest and SOB is better when she is lying. She has also been feeling fatigued. Repots that chest pain and SOB stopped when she arrived to the ER. Patient denies any fevers, chills, nausea, vomiting, constipation, dizziness, lightheadedness or headache. She repots that she drinks 1-2 glasses of red wine nightly and quit this about a week ago as she felt this may be related to her symptoms of fatigue , SOB and chest pain. She denies any recent changes to her medications. CBC/BMP: 10/04/17 1540 10/05/17 0900 Significant Findings Laboratory Tests Test 10/04/17 15:40 10/05/17 09:00 10/05/17 17:33 10/06/17 00:20 Monocytes (%) (Auto) 11.4 % (0.0-8.0) Activated Partial Thromboplast Time 24.0 SEC (24.3-30.1) 64.1 SEC (24.3-30.1) 65.5 SEC (24.3-30.1) Blood Urea Nitrogen 21 MG/DL (7-18) 21 MG/DL (7-18) Creatinine 1.34 MG/DL (0.50-1.00) 1.11 MG/DL (0.50-1.00) Estimat Glomerular Filtration Rate 37 ML/MIN (>89) 46 ML/MIN (>89) Troponin I LESS THAN 0.02 NG/ML B-Type Natriuretic Peptide 315 PG/ML (0-100) Aspartate Amino Transf (AST/SGOT) 44 U/L (15-37) Alanine Aminotransferase (ALT/SGPT) 63 U/L (10-53) Test 10/06/17 07:20 Activated Partial Thromboplast Time 59.5 SEC (24.3-30.1) Imaging Last Impressions Myocardial Perfusion Scan Nuc Med 10/05/17 0000 Signed Impressions: Service Date/Time: Thursday, October 05, 2017 09:48 - CONCLUSION: Normal examination. RISK CATEGORY: Low (<1%% Annual Mortality Rate) Duy Noe MD Chest X-Ray 10/04/17 1533 Signed Impressions: Service Date/Time: Wednesday, October 04, 2017 16:10 - CONCLUSION: No acute disease. Fer Pickett MD PE at Discharge GENERAL: This is a well-nourished, well-developed patient, in no apparent distress. SKIN: No rashes, warm and dry HEAD: Atraumatic. Normocephalic. EYES: Pupils equal round and reactive. Extraocular motions intact. No scleral icterus. ENT: Nose without bleeding, or drainage, Airway patent. NECK: Trachea midline. Supple CARDIOVASCULAR: Regular rate and rhythm without murmurs, gallops, or rubs. RESPIRATORY: Fair air entry bilaterally. No wheezes, rales, or rhonchi. GASTROINTESTINAL: Abdomen soft, non-tender, nondistended. Positive bowel sounds MUSCULOSKELETAL: Extremities without clubbing, cyanosis, or edema. Pedal pulses appreciated NEUROLOGICAL: Awake and alert. Moves all extremity. Normal speech.no focal neurological deficit Hospital Course 87-year-old female with PMH of HTN sent to the ER due to new onset of a.fib with RVR. A.fib w/ RVR, new onset. Converted to NSR Atypical chest pain - HR on admission was 130, still remains high - EKG personally reviewed, a.fib with RVR, HR 147, no evidence to STEMI - CBC stable, BMP with electrolytes unremarkable. Troponin negative - Patient received 2.5mg of IV Metoprolol while in the ED along with Cardizem 60mg PO (hospital has been out of IV Cardizem) -. Patient has been placed on Cardizem 60mg PO Q6hrs, PRN Metoprolol IV for HR control and Heparin gtt. Norvasc on hold -Appreciate cardiology consultation, status post stress test low probability , patient's need to be on anticoagulation however I discussed with her extensively and explained the risk of both ways and she adamantly wants to be only on aspirin - 2D echo normal. Cleared by cardio for DC. To f/u as OP. To have eliquis , metoprolol and cardizem as DC per cardio Dyspnea on exertion -Could be related to a.fib with RVA but still need to rule out underlying CHF , NO CHF, EF IS NORMAL - Chest x-ray personally reviewed, negative for acute process. - Oxygen saturation in the high 90's on room air AIDEN -Improved creatinine - Follow renal function, encourage PO fluids Alcohol consumption - Drinks 1-2 glasses of red wine per night - Discussed cutting back to only one glass per night DVT prophylaxis- Heparine gtt Patient improved to follow up as OP with PcP and consultants. Cleared by cardio for DC. To f/u as OP. To have eliquis , metoprolol and cardizem as DC per cardio. Pt Condition on Discharge: Stable Discharge Disposition: Discharge Home Discharge Time: > 30 minutes Discharge Instructions DIET: Follow Instructions for: Heart Healthy Diet Activities you can perform: Regular-No Restrictions Follow up Referrals: Cardiology - 3 Weeks PCP Follow-up - 2-3 Days New Medications: Apixaban (Eliquis) 5 Mg Tab 5 MG PO BID for Blood Clot Prevention, #60 TAB Diltiazem CD 24 HR (Diltiazem CD 24 HR) 240 Mg Caper 240 MG PO DAILY for afib, #30 CAP Metoprolol Tartrate (Metoprolol Tartrate) 25 Mg Tab 12.5 MG PO Q12HR for Blood Clot Prevention, #60 TAB Continued Medications: Calcitriol (Calcitriol) 0.25 Mcg Cap 0.25 MCG PO DAILY for Calcium Supplement, #30 CAP 0 Refills Calcium Citrate/Vitamin D3 (Calcium Citrate - Vit D Tablet) 315 Mg Calcium-200 Unit Tablet 1 TAB PO HS Glucosamine Sulfate (Glucosamine Sulfate) 1,000 Mg Tab 1000 MG PO HS for Nutritional Supplement, TAB Multiple Vitamin (One Daily) 1 Tab 1 TAB PO DAILY for Nutritional Supplement, TAB 0 Refills Multiple Vitamins W/ Minerals (Centrum Silver Adult 50+) 0.4 Mg-300 Mcg-250 Mcg Tab 1 TAB PO HS for Nutritional Supplement Discontinued Medications: Amlodipine (Amlodipine) 5 Mg Tab 5 MG PO DAILY for Blood Pressure Management, #30 TAB 0 Refills Losartan (Losartan) 50 Mg Tab 50 MG PO DAILY for Blood Pressure Management, #30 TAB 0 Refills Triamterene-Hydrochlorothiazide (Triamterene-Hydrochlorothiazide) 37.5-25 Mg Tab 1 TAB PO DAILY, #30 TAB 0 Refills Nancy Nair MD Oct 06, 2017 11:43
== END 2017-10-06 13:28 | disposition home or self-care (01) | DRG 309 ==
LOC: NEPC 15:23 → NEDA 17:15 → NEDH 21:31 → N04A 10-05 14:12
PROVIDERS: ADMIT Hospitalist; ATTEND Hospitalist
DX: I48.0 Paroxysmal atrial fibrillation (principal); N17.9 Acute kidney failure, unspecified; I10 Essential (primary) hypertension; Z72.89 Other problems related to lifestyle; Z87.891 Personal history of nicotine dependence
CPT/HCPCS: 71046; 78452; 80048; 80053; 82550; 82552; 83735; 83880; 84100; 84484; 85025; 85610; 85730; 93005; 93017; 93306; 96374; 96375; A9502; J1644; J2785

== ENCOUNTER 2018-05-23 08:36 | Inpatient (IN) ==
[2018-05-23 09:49] LABS: White Blood Count 8.5 th/mm3 (4.0-11.0)
[2018-05-23 09:50] LABS: Baso # (Auto) 0.1 th/mm3 (0.0-0.2); Baso % (Auto) 1.2 % (0.0-2.0); Eos # (Auto) 0.1 th/mm3 (0.0-0.4); Eos % (Auto) 0.6 % (0.0-4.0); Hematocrit 42.4 % (35.0-46.0); Hemoglobin 13.9 gm/dL (11.6-15.3); Lymph # (Auto) 1.4 th/mm3 (1.0-4.8); Lymph % (Auto) 16.6 % (9.0-44.0); Mean Corpuscular HGB Conc 32.8 % (32.0-36.0); Mean Corpuscular Hemoglobin 33.1 pg (27.0-34.0); Mean Platelet Volume 8.1 fL (7.0-11.0); Mono # (Auto) 0.9 th/mm3 (0.0-0.9); Mono % (Auto) 10.9 % (0.0-8.0); Neut % (Auto) 70.7 % (16.0-70.0); Platelet Count 291 th/mm3 (150-450); Red Cell Distribution Width 15.2 % (11.6-17.2)
[2018-05-23 09:59] LABS: Activated Partial Thrombo Time 26.4 sec (23.4-31.7); INR 1.4 Ratio; Prothrombin Time 13.8 sec (9.8-11.6)
--- NOTE | 2018-05-23 10:03 | XR ---
EXAM DATE: 05/23/2018 9:52 AM EST AGE/SEX: 87 years / Female INDICATIONS: Shortness of breath. CLINICAL DATA: This is the patient's initial encounter. Patient reports that signs and symptoms have been present for 1 day and indicates a pain score of 0/10. MEDICAL/SURGICAL HISTORY: . A-fib None. COMPARISON: [facility] [place] 1V SINGLE AP, 05/15/2018. . FINDINGS: The heart size is borderline enlarged. There appear to be bilateral mild pleural effusions being wors e on the left. There some minimal prominence of interstitium in the perihilar regions especially on t he left. CONCLUSION: Mild bilateral pleural effusions. Mild prominence of interstitium in the perihilar regions especially on the left which may represent p ulmonary venous hypertension. Borderline cardiomegaly. Electronically signed by: Duy Cleveland MD 05/23/2018 10:02 AM EST
[2018-05-23 10:06] LABS: Anion Gap 7 meq/L (5-15); Aspartate Aminotransferase 32 U/L (15-37); Blood Urea Nitrogen 37 mg/dL (7-18); Calcium 8.7 mg/dL (8.5-10.1); Carbon Dioxide 27.5 meq/L (21.0-32.0); Chloride 105 meq/L (98-107); Glomerular Filtration Rate 34 mL/min (>89); Glucose,Random 104 mg/dL (74-106); Magnesium 2.1 mg/dL (1.5-2.5); Sodium 139 meq/L (136-145)
[2018-05-23 10:11] LABS: Alanine Aminotransferase 28 U/L (10-53); Alkaline Phosphatase 98 U/L (45-117); Total Protein 7.4 g/dL (6.4-8.2)
--- NOTE | 2018-05-23 10:13 | ED ---
HPI General Chief Complaint: Extremity Injury, Lower Stated Complaint: leg pain/swelling Time Seen by Provider: 05/23/18 09:12 Source: patient and family Mode of arrival: ambulatory Limitations: no limitations History of Present Illness 87-year-old female presents with dyspnea on exertion, bleeding when she goes poop, generalized weakness that is been progressive since her last visit. She states the bleeding when she goes poop has been new. Her son states that she usually would walk 2 miles and now she can barely make it a couple steps without getting short of breath. The patient states she took her Cardizem this morning at 6 AM and also at 6 PM like she should. She states that she has no other specific complaints at this time. Her son helps supplement history but history is still limited from patient being poor historian. Related Data Home Medications Medication Instructions Recorded Confirmed apixaban [Eliquis] 5 mg PO BID 05/15/18 05/23/18 diltiazem HCl 240 mg PO DAILY 05/15/18 05/23/18 furosemide 40 mg PO DAILY 05/15/18 05/23/18 glucosamine sulfate [Glucosamine] 500 mg PO DAILY 05/15/18 05/23/18 metoprolol tartrate 50 mg PO BID 05/15/18 05/23/18 potassium chloride 10 meq PO DAILY 05/15/18 05/23/18 Allergies Allergy/AdvReac Type Severity Reaction Status Date / Time No Known Allergies Allergy Verified 05/23/18 08:45 Review of Systems ROS: all other systems reviewed are negative [facility] Medical History Medical History A-fib (Acute) CKD (chronic kidney disease) (Acute) H/O: hysterectomy (Acute) Hypertension (Acute) Surgical History Surgical History H/O sinus surgery (Acute) Social History Social History Substance History: No History of Abuse Second Hand Smoke Exposure: No Smoking Status: Former smoker Tobacco Type: Cigarettes How Often Do You Have a Drink Containing Alcohol: 4 or more times a week Recent Travel in [facility] within the Last 8 Weeks: No Recent Out of Country Travel within the Last 8 Weeks: No Immunization History Tetanus Immunization: >5 Years Exam Narrative Exam Narrative: GENERAL: 87 y/o female in no apparent distress SKIN: Focused skin assessment warm/dry. HEAD: Atraumatic. Normocephalic. EYES: Pupils equal and round. No scleral icterus. No injection or drainage. ENT: No nasal bleeding or discharge. Mucous membranes pink and moist. NECK: Trachea midline. No JVD. CARDIOVASCULAR: irregular rate and rhythm. No murmur appreciated. RESPIRATORY: No accessory muscle use. Clear to auscultation. Breath sounds equal bilaterally at apices. GASTROINTESTINAL: Abdomen soft, non-tender, nondistended. MUSCULOSKELETAL: No obvious deformities. No clubbing. No cyanosis. NEUROLOGICAL: Awake and alert. moves all extremities. Normal speech. PSYCHIATRIC: Appropriate mood and affect; insight and judgment normal. RECTAL EXAM: Performed with nuclear medicine technician and after permission. No external hemorrhoid or fissure, stool is brown, non-bloody. Procedures Hemaprompt Stool Procedural Steps Taken: specimen placed in appropriate test area, developer placed on specimen and control areas and controls appropriately positive and negative Hemaprompt Stool Result: negative Course Reevaluation(s) Reevaluation #1: Patient and son updated. Agree to admission for further care. Likely new onset CHF. In regards to rectal bleeding hemoglobin stable here in my guaiac was negative this can be monitored Consultations Consultation #1: dr richardson agrees to full admit Initial Documented Vital Signs Temperature 97.1 F L 05/23/18 08:41 Pulse Rate 124 H 05/23/18 08:41 Respiratory Rate 20 05/23/18 08:41 Blood Pressure 160/69 H 05/23/18 08:41 Pulse Oximetry 92 L 05/23/18 08:41 Last Documented Vital Signs Temperature 97.1 F L 05/23/18 08:41 Pulse Rate 108 H 05/23/18 09:48 Respiratory Rate 22 05/23/18 09:48 Blood Pressure 166/90 H 05/23/18 09:19 Pulse Oximetry 99 05/23/18 09:48 Medical Decision Making [facility] Narrative Medical decision making narrative: Patient has underlying A. fib and currently is in RVR in the 120s. She took her home Cardizem. Will dose with 10 mg IV Cardizem and check blood work, chest x-ray. Guaiac is currently negative at this time in terms of rectal bleeding so we will hold on medication for this at this time. Patient likely has new onset CHF given symptoms Medical Screen Exam Complete: Yes Emergency Medical Condition: Yes Differential Diagnosis Differential Diagnosis: Anemia, renal failure, CHF Lab Data Result diagrams: 05/23/18 09:28 05/23/18 09:28 Lab Results 05/23/18 05/23/18 05/23/18 Range/Units 09:28 09:28 09:28 WBC 8.5 (4.0-11.0) th/mm3 RBC 4.20 (4.00-5.30) mil/mm3 Hgb 13.9 (11.6-15.3) gm/dL Hct 42.4 (35.0-46.0) % MCV 101.0 H (80.0-100.0) fL MCH 33.1 (27.0-34.0) pg MCHC 32.8 (32.0-36.0) % RDW 15.2 (11.6-17.2) % Plt Count 291 (150-450) th/mm3 MPV 8.1 (7.0-11.0) fL Neut % (Auto) 70.7 H (16.0-70.0) % Lymph % (Auto) 16.6 (9.0-44.0) % Mccone % (Auto) 10.9 H (0.0-8.0) % Eos % (Auto) 0.6 (0.0-4.0) % Baso % (Auto) 1.2 (0.0-2.0) % Neut # (Auto) 6.0 (1.8-7.7) th/mm3 Lymph # (Auto) 1.4 (1.0-4.8) th/mm3 Mccone # (Auto) 0.9 (0.0-0.9) th/mm3 Eos # (Auto) 0.1 (0.0-0.4) th/mm3 Baso # (Auto) 0.1 (0.0-0.2) th/mm3 WBC Differential . Differential Comment Auto diff final PT 13.8 H (9.8-11.6) sec INR 1.4 Ratio APTT 26.4 (23.4-31.7) sec Sodium 139 (136-145) meq/L Potassium 4.0 (3.5-5.1) meq/L Chloride 105 (98-107) meq/L Carbon Dioxide 27.5 (21.0-32.0) meq/L Anion Gap 7 (5-15) meq/L BUN 37 H (7-18) mg/dL Creatinine 1.45 H (0.50-1.00) mg/dL Estimated GFR 34 L (>89) mL/min Random Glucose 104 (74-106) mg/dL Calcium 8.7 (8.5-10.1) mg/dL Magnesium 2.1 (1.5-2.5) mg/dL Total Bilirubin 0.9 (0.2-1.0) mg/dL AST 32 (15-37) U/L ALT 28 (10-53) U/L Alkaline Phosphatase 98 (45-117) U/L Total Creatine Kinase 99 (26-192) U/L Troponin I Less than 0.02 L (0.02-0.05) ng/mL B-Natriuretic Peptide (0-100) pg/mL Total Protein 7.4 (6.4-8.2) g/dL Albumin 3.0 L (3.4-5.0) g/dL 05/23/18 Range/Units 09:28 WBC (4.0-11.0) th/mm3 RBC (4.00-5.30) mil/mm3 Hgb (11.6-15.3) gm/dL Hct (35.0-46.0) % MCV (80.0-100.0) fL MCH (27.0-34.0) pg MCHC (32.0-36.0) % RDW (11.6-17.2) % Plt Count (150-450) th/mm3 MPV (7.0-11.0) fL Neut % (Auto) (16.0-70.0) % Lymph % (Auto) (9.0-44.0) % Mccone % (Auto) (0.0-8.0) % Eos % (Auto) (0.0-4.0) % Baso % (Auto) (0.0-2.0) % Neut # (Auto) (1.8-7.7) th/mm3 Lymph # (Auto) (1.0-4.8) th/mm3 Mccone # (Auto) (0.0-0.9) th/mm3 Eos # (Auto) (0.0-0.4) th/mm3 Baso # (Auto) (0.0-0.2) th/mm3 WBC Differential Differential Comment PT (9.8-11.6) sec INR Ratio APTT (23.4-31.7) sec Sodium (136-145) meq/L Potassium (3.5-5.1) meq/L Chloride (98-107) meq/L Carbon Dioxide (21.0-32.0) meq/L Anion Gap (5-15) meq/L BUN (7-18) mg/dL Creatinine (0.50-1.00) mg/dL Estimated GFR (>89) mL/min Random Glucose (74-106) mg/dL Calcium (8.5-10.1) mg/dL Magnesium (1.5-2.5) mg/dL Total Bilirubin (0.2-1.0) mg/dL AST (15-37) U/L ALT (10-53) U/L Alkaline Phosphatase (45-117) U/L Total Creatine Kinase (26-192) U/L Troponin I (0.02-0.05) ng/mL B-Natriuretic Peptide 710 H (0-100) pg/mL Total Protein (6.4-8.2) g/dL Albumin (3.4-5.0) g/dL Imaging Data Radiologist's impression: Chest X-Ray 05/23/18 09:11 CONCLUSION: Mild bilateral pleural effusions. Mild prominence of interstitium in the perihilar regions especially on the left which may represent pulmonary venous hypertension. Borderline cardiomegaly. Discharge Plan Discharge Disposition Patient Disposition: ED Admit(ED Internal Use Only) Discharge Order Discharge Orders: ED Use Only Admit Order (Routine); Ordered 05/23/18 Ordered By: Mahnaz Camacho Discharge Details Diagnosis: CHF (congestive heart failure) Physicians Team ED Provider: Mahnaz Camacho Primary Care Provider: Meenakshi Sandoval Attending Provider: Jody Richardson Status ED Status: Admitted Patient
[2018-05-23 10:15] LABS: Creatine Kinase 99 U/L (26-192)
[2018-05-23] MEDS ORDERED: Acetaminophen 325 MG Tablet PO PRN (10:41)
[2018-05-23] MEDS ORDERED: Bisacodyl 10 MG Supp RECTAL PRN (10:41)
[2018-05-23] MEDS ORDERED: Metoprolol Tartrate 50 MG Tablet PO ONE (10:44)
--- NOTE | 2018-05-23 10:45 | P.HP ---
History of Present Illness Service: Hospitalist Primary Care Physician: Meenakshi Sandoval MD Chief Complaint: Shortness of breath, leg swelling. History of Present Illness: Ms. Zeng is a pleasant 87-year-old female with a history of atrial fibrillation, diastolic congestive heart failure who presents to the emergency department due to worsening shortness of breath as well as leg swelling. Patient reports that since October 2017, her ability to walk due to dyspnea as well as leg swelling have been getting worse. In the last 1-3 weeks, she has been particularly very dyspneic and unable to even go to her mailbox without getting short of breath. She denies any chest pain but reports cough. She reports orthopnea. Denies any fever or chills. Denies any abdominal pain, changes in bowel or bladder habits. However, she does report occasional bright red blood during bowel movements. Past medical history: Atrial fibrillation, congestive heart failure Past surgical history: Hysterectomy at age 41, sinus surgery Social history: Patient does not smoke but drinks 1 glass of red wine every day. Family history: No family history of Alzheimer's or Parkinson's. Review of Systems All other systems reviewed negative except as stated in HPI [facility] - History History Provided By: Patient - Medical History Medical History: Medical History (Last Reviewed 05/23/18 @ 16:10 by Jody Richardson DO) A-fib CKD (chronic kidney disease) H/O: hysterectomy Hypertension - Surgical History Surgical History: Surgical History (Last Reviewed 05/23/18 @ 16:10 by Jody Richardson DO) H/O sinus surgery - Tobacco History Second Hand Smoke Exposure: No Tobacco Use In Past 30 Days: Yes Smoking Status: Former smoker Tobacco Type: Cigarettes - Alcohol History How Often Do You Have a Drink Containing Alcohol: 4 or more times a week - Substance Use History Substance History: No History of Abuse - Travel History Recent Travel in the [place] Within the Last 8 Weeks: No Recent Travel Out of the Country Within the Last 8 Weeks: No - Immunization History Tetanus Immunization: >5 Years Medications and Allergies Active Medications: Active Medications Acetaminophen (Tylenol) 650 mg PO Q4H PRN PRN Reason: Headache, fever, pain 1-4 Al Hydroxide/Mg Hydroxide (Milk Of Magnesia Liq) 30 ml PO Q12H PRN PRN Reason: Mild Constipation Apixaban (Eliquis) 5 mg PO BID AGUST[facility]N Bisacodyl (Dulcolax Supp) 10 mg RECTAL DAILY PRN PRN Reason: SEVERE CONSITIPATION Furosemide (Lasix Inj) 40 mg IV.PUSH BID@0900,1800 [facility] Lactulose (Lactulose Liq) 30 ml PO DAILY PRN PRN Reason: SEVERE CONSITIPATION Metoprolol Tartrate (Lopressor) 50 mg PO BID [facility] Metoprolol Tartrate (Lopressor) 50 mg PO ONCE ONE Stop: 05/23/18 10:45 Non-Formulary Medication (Diltiazem Hcl [Diltiazem Hcl]) 240 mg PO DAILY [facility] Ondansetron HCl (Zofran Inj) 4 mg IV.PUSH Q6H PRN PRN Reason: NAUSEA OR VOMITING Potassium Chloride (Klor-Con 10) 10 meq PO DAILY [facility] Sennosides (Senokot) 17.2 mg PO Q12H PRN PRN Reason: Moderate Constipation Sodium Chloride (Ns Flush) 2 ml IV.FLUSH UNSCH PRN PRN Reason: FLUSH AFTER USING IV ACCESS Sodium Chloride (Ns Flush) 2 ml IV.FLUSH BID [facility] Sodium Chloride (Ns Flush) 2 ml IV.FLUSH PRN PRN PRN Reason: FLUSH AFTER USING IV ACCESS Allergies Allergy/AdvReac Type Severity Reaction Status Date / Time No Known Allergies Allergy Verified 05/23/18 08:45 Home Medications Medication Instructions Recorded Confirmed Type apixaban [Eliquis] 5 mg PO BID 05/15/18 05/23/18 History diltiazem HCl 240 mg PO DAILY 05/15/18 05/23/18 History furosemide 40 mg PO DAILY 05/15/18 05/23/18 History glucosamine sulfate [Glucosamine] 500 mg PO DAILY 05/15/18 05/23/18 History metoprolol tartrate 50 mg PO BID 05/15/18 05/23/18 History potassium chloride 10 meq PO DAILY 05/15/18 05/23/18 History Exam Vital signs: Vital Signs 05/23/18 08:41 05/23/18 09:19 05/23/18 09:40 Temperature 97.1 F L Pulse Rate 124 H 132 H Respiratory Rate 20 24 Blood Pressure 160/69 H 166/90 H Pulse Oximetry 92 L 96 98 05/23/18 09:48 Temperature Pulse Rate 108 H Respiratory Rate 22 Blood Pressure Pulse Oximetry 99 Intake & Output 05/22/18 05/23/18 05/23/18 18:59 06:59 18:59 Weight 63.503 kg Narrative: GENERAL: This is a well-nourished, well-developed patient, in no apparent distress. SKIN: No rashes, ecchymoses or lesions. Warm and dry. HEAD: Atraumatic. Normocephalic. No temporal or scalp tenderness. EYES: Pupils equal round and reactive. No injection or drainage. ENT: Nose without bleeding, purulent drainage or septal hematoma. Airway patent. NECK: Trachea midline. No lymphadenopathy. Supple, nontender, no meningeal signs. CARDIOVASCULAR: Irregularly irregular rate controlled without murmurs, gallops, or rubs. No JVD. RESPIRATORY: Moderate air entry, bibasilar diminished sounds with mild crackles. GASTROINTESTINAL: Abdomen soft, non-tender, nondistended. No guarding. MUSCULOSKELETAL: Extremities without clubbing, cyanosis. 1+ lower extremity edema with chronic venous stasis. She has some superficial skin ulceration especially on the left lower extremity. NEUROLOGICAL: Awake and alert. Cranial nerves II through XII intact. No focal neurological deficits. Normal speech. Results - Labs CBC & Chem 7: 05/23/18 09:28 05/23/18 09:28 Labs: Laboratory Results - last 24 hr 05/23/18 05/23/18 05/23/18 09:28 09:28 09:28 WBC 8.5 RBC 4.20 Hgb 13.9 Hct 42.4 MCV 101.0 H MCH 33.1 MCHC 32.8 RDW 15.2 Plt Count 291 MPV 8.1 Neut % (Auto) 70.7 H Lymph % (Auto) 16.6 Franklin % (Auto) 10.9 H Eos % (Auto) 0.6 Baso % (Auto) 1.2 Neut # (Auto) 6.0 Lymph # (Auto) 1.4 Franklin # (Auto) 0.9 Eos # (Auto) 0.1 Baso # (Auto) 0.1 WBC Differential . Differential Comment Auto diff final PT 13.8 H INR 1.4 APTT 26.4 Sodium 139 Potassium 4.0 Chloride 105 Carbon Dioxide 27.5 Anion Gap 7 BUN 37 H Creatinine 1.45 H Estimated GFR 34 L Random Glucose 104 Calcium 8.7 Magnesium 2.1 Total Bilirubin 0.9 AST 32 ALT 28 Alkaline Phosphatase 98 Total Creatine Kinase 99 Troponin I Less than 0.02 L B-Natriuretic Peptide Total Protein 7.4 Albumin 3.0 L 05/23/18 09:28 WBC RBC Hgb Hct MCV MCH MCHC RDW Plt Count MPV Neut % (Auto) Lymph % (Auto) Franklin % (Auto) Eos % (Auto) Baso % (Auto) Neut # (Auto) Lymph # (Auto) Franklin # (Auto) Eos # (Auto) Baso # (Auto) WBC Differential Differential Comment PT INR APTT Sodium Potassium Chloride Carbon Dioxide Anion Gap BUN Creatinine Estimated GFR Random Glucose Calcium Magnesium Total Bilirubin AST ALT Alkaline Phosphatase Total Creatine Kinase Troponin I B-Natriuretic Peptide 710 H Total Protein Albumin - Imaging Impressions Chest X-Ray 05/23/18 09:11 CONCLUSION: Mild bilateral pleural effusions. Mild prominence of interstitium in the perihilar regions especially on the left which may represent pulmonary venous hypertension. Borderline cardiomegaly. Caprini VTE Risk Assessment Caprini VTE Risk Assessment: Moderate/High Risk (score >= 2) Caprini Risk Assessment Model: Point Value = 1 Point Value = 2 Point Value = 3 Point Value = 5 Age 41-60 Minor surgery BMI > 25 kg/m2 Swollen legs Varicose veins or History of unexplained or recurrent spontaneous Oral contraceptives or hormone replacement Sepsis (< 1 month) Serious lung disease, including pneumonia (< 1 month) Abnormal pulmonary function Acute myocardial infarction Congestive heart failure (< 1 month) History of inflammatory bowel disease Medical patient at bed rest Age 61-74 Arthroscopic surgery Major open surgery (> 45 min) Laparoscopic surgery (> 45 min) Malignancy Confined to bed (> 72 hours) Immobilizing plaster cast Central venous access Age >= 75 History of VTE Family history of VTE Factor V Leiden Prothrombin [id number] Lupus anticoagulant Anticardiolipin antibodies Elevated serum homocysteine Heparin-induced thrombocytopenia Other congenital or acquired thrombophilia Stroke (< 1 month) Elective arthroplasty Hip, pelvis, or leg fracture Acute spinal cord injury (< 1 month) Prophylaxis Regimen: Total Risk Factor Score Risk Level Prophylaxis Regimen 0-1 Low Early ambulation 2 Moderate Order ONE of the following: *Sequential Compression Device (SCD) *Heparin 5000 units SQ BID 3-4 Higher Order ONE of the following medications: *Heparin 5000 units SQ TID *Enoxaparin/Lovenox 40 mg SQ daily (WT < 150 kg, CrCl > 30 mL/min) *Enoxaparin/Lovenox 30 mg SQ daily (WT < 150 kg, CrCl > 10-29 mL/min) *Enoxaparin/Lovenox 30 mg SQ BID (WT < 150 kg, CrCl > 30 mL/min) AND/OR *Sequential Compression Device (SCD) 5 or more Highest Order ONE of the following medications: *Heparin 5000 units SQ TID (Preferred with Epidurals) *Enoxaparin/Lovenox 40 mg SQ daily (WT < 150 kg, CrCl > 30 mL/min) *Enoxaparin/Lovenox 30 mg SQ daily (WT < 150 kg, CrCl > 10-29 mL/min) *Enoxaparin/Lovenox 30 mg SQ BID (WT < 150 kg, CrCl > 30 mL/min) AND *Sequential Compression Device (SCD) Assessment and Plan - Plan Ms. Zeng is a pleasant 87-year-old female with a history of congestive heart failure, atrial fibrillation who presents to the emergency department on 05/23/2018 due to progressively worsening shortness of breath. Her symptoms started in October 2017. However, in the last 1-3 weeks her symptoms have been particularly worse. She is unable to walk to her mailbox when she was able to walk 2 miles previously. She reports orthopnea and cough without fever or chills. Acute exacerbation of congestive heart failure -likely diastolic BNP is elevated to 710, chest x-ray significant for probable CHF Echocardiogram in September 2017 shows preserved EF 50-55%. We will start patient on Lasix 40 mg IV every 12 hours Upon discharge consider torsemide 10 mg twice daily. Patient is currently on room air. We will obtain a limited echocardiogram. -Patient follows up with Dr. Guidry ([facility]). Atrial fibrillation Continue metoprolol tartrate 50 mg twice daily for rate control Patient is above 80 years old and her weight is 63.5 kg and her creatinine is 1.45 today. Patient reports some GI bleed which probably is related to hemorrhoids. Given patient's age, weight, creatinine, it would be reasonable to reduce apixaban to 2.5 mg twice daily. Probable hemorrhoidal bleed Patient's hemoglobin is 13.9. MCV 101.0 could be related to daily alcohol abuse. We will recommend outpatient GI follow-up. Along with apixaban, we will start patient on Protonix 40 mg daily. Avoid NSAIDs. Acute kidney injury Baseline creatinine appears to be around 1.2. On admission 1.45. Continue Lasix as better perfusion, creatinine might improve. Alcohol use Patient drinks 1 glass of wine daily. Full code. Apixaban Discharge plan: If patient improves clinically, Patient can likely be discharged on Torsemide 10mg BID, KCL supplements, Apixaban 2.5mg BID, Protonix and an outpatient GI Referal.
--- NOTE | 2018-05-23 13:28 | ECG ---
Date Performed: 05/23/2018 Time Performed: 09:18:11 PTAGE: 87 years EKG: ATRIAL FIBRILLATION WITH RAPID VENTRICULAR RESPONSE ABNORMAL RHYTHM ECG Compared to prior e lectrocardiogram, rate has increased . PREVIOUS TRACING : 05/15/2018 16.41 DOCTOR: Chris Olivarez Interpretating Date/Time 05/23/2018 13:27:36
--- NOTE | 2018-05-23 16:24 | ECHRPT ---
Indication: HEART FAILURE CONCLUSIONS The left ventricular systolic function is low normal with an estimated ejection fraction in the rang e of 50- 55%. Mild concentric left ventricular hypertrophy. Trace mitral valve regurgitation. Mild aortic valve regurgitation. There is mild tricuspid valve regurgitation. BP: / HR: Rhythm: PVCs MEASUREMENTS (Male / Female) Normal Values Technical Quality:Fair 2D ECHO LV Diastolic Diameter PLAX 3.6 cm 4.2 - 5.9 / 3.9 - 5.3 cm LV Systolic Diameter PLAX 2.7 cm IVS Diastolic Thickness 1.3 cm 0.6 - 1.0 / 0.6 - 0.9 cm LVPW Diastolic Thickness 1.2 cm 0.6 - 1.0 / 0.6 - 0.9 cm LV Relative Wall Thickness 0.7 LVOT Diameter 1.6 cm LV Ejection Fraction MOD 4C 50.0 % LV Ejection Fraction 4C AL 48.7 % M-MODE Aortic Root Diameter MM 3.0 cm LA Systolic Diameter MM 3.0 cm LA Ao Ratio MM 1.0 AV Cusp Separation MM 1.7 cm DOPPLER AI Peak Velocity 292.0 cm/s AI Peak Gradient 34.1 mmHg AI Pressure Half Time 490.0 ms TR Peak Velocity 319.0 cm/s TR Peak Gradient 40.7 mmHg Right Atrial Pressure 10.0 mmHg Pulmonary Artery Systolic Pressu 50.7 mmHg Right Ventricular Systolic Press 50.7 mmHg FINDINGS LEFT VENTRICLE The left ventricular systolic function is low normal with an estimated ejection fraction in the rang e of 50- 55%. Normal left ventricular size. Mild concentric left ventricular hypertrophy. RIGHT VENTRICLE Grossly normal LEFT ATRIUM The left atrial size is mildly dilated. RIGHT ATRIUM The right atrial size is mildly dilated. ATRIAL SEPTUM Normal atrial septal thickness. MITRAL VALVE Structurally normal mitral valve. Trace mitral valve regurgitation. No mitral valve stenosis. Mild mitral annular calcification. AORTIC VALVE Trileaflet aortic valve. Aortic valve sclerosis is present. Mild aortic valve regurgitation. No aortic valve stenosis. TRICUSPID VALVE Structurally normal tricuspid valve. There is mild tricuspid valve regurgitation. The estimated pulmonary arterial pressure is 51 mmHg. PULMONARY VALVE The pulmonary valve is not well visualized. PERICARDIUM No pericardial effusion. Rc Cid DO (Electronically Signed) Final Date:23 May 2018 16:23
[2018-05-23] MEDS: Metoprolol Tartrate 50 MG Tablet PO SCH (20:42)
[2018-05-24 08:01] LABS: Calcium 8.4 mg/dL (8.5-10.1); Carbon Dioxide 31.2 meq/L (21.0-32.0)
--- NOTE | 2018-05-24 08:06 | P.PNIM ---
Subjective Interval history: f/u; CHF in no acute distress. sob is improving. no chest pain. Physical Exam Vital signs: Vital Signs 05/23/18 08:41 05/23/18 09:19 05/23/18 09:40 Temperature 97.1 F L Pulse Rate 124 H 132 H Respiratory Rate 20 24 Blood Pressure 160/69 H 166/90 H Pulse Oximetry 92 L 96 98 05/23/18 09:48 05/23/18 11:11 05/23/18 13:45 Temperature 97.6 F Pulse Rate 108 H 111 H 113 H Respiratory Rate 22 18 20 Blood Pressure 140/98 H 140/81 Pulse Oximetry 99 95 100 05/23/18 16:05 05/23/18 20:00 05/24/18 00:00 Temperature 97.8 F 97.6 F 97.5 F L Pulse Rate 85 84 84 Respiratory Rate 20 15 15 Blood Pressure 132/63 129/64 121/61 Pulse Oximetry 97 94 L 93 L 05/24/18 04:00 Temperature 98.0 F Pulse Rate 112 H Respiratory Rate 17 Blood Pressure 125/78 Pulse Oximetry 95 Intake & Output 05/23/18 05/24/18 05/24/18 18:59 06:59 18:59 Intake Total 600 / 600 450 / 450 Output Total 800 / 800 Balance -200 / -200 450 / 450 Weight 65.5 kg Intake: Oral 600 / 600 450 / 450 Output: Urine 800 / 800 Other: # Voids 2 Date of Last Bowel Movement 05/22/18 05/22/18 Weight On Admission 65.5 kg - Constitutional no acute distress - Routine Respiratory Exam Present: CTA bilaterally - Routine Cardiovascular Exam Present: RRR - Routine Abdominal Exam Present: soft - Routine Extremities Exam Comments: mild bilateral pedal edema. - Routine Neurological Exam Present: alert, oriented X3 Results - Labs CBC & Chem 7: 05/23/18 09:28 05/24/18 07:01 Laboratory Results - last 24 hr 05/23/18 05/23/18 05/23/18 09:28 09:28 09:28 WBC 8.5 RBC 4.20 Hgb 13.9 Hct 42.4 MCV 101.0 H MCH 33.1 MCHC 32.8 RDW 15.2 Plt Count 291 MPV 8.1 Neut % (Auto) 70.7 H Lymph % (Auto) 16.6 [place] % (Auto) 10.9 H Eos % (Auto) 0.6 Baso % (Auto) 1.2 Neut # (Auto) 6.0 Lymph # (Auto) 1.4 [place] # (Auto) 0.9 Eos # (Auto) 0.1 Baso # (Auto) 0.1 WBC Differential . Differential Comment Auto diff final PT 13.8 H INR 1.4 APTT 26.4 Sodium 139 Potassium 4.0 Chloride 105 Carbon Dioxide 27.5 Anion Gap 7 BUN 37 H Creatinine 1.45 H Estimated GFR 34 L Random Glucose 104 Calcium 8.7 Magnesium 2.1 Total Bilirubin 0.9 AST 32 ALT 28 Alkaline Phosphatase 98 Total Creatine Kinase 99 Troponin I Less than 0.02 L B-Natriuretic Peptide Total Protein 7.4 Albumin 3.0 L 05/23/18 09:28 WBC RBC Hgb Hct MCV MCH MCHC RDW Plt Count MPV Neut % (Auto) Lymph % (Auto) [place] % (Auto) Eos % (Auto) Baso % (Auto) Neut # (Auto) Lymph # (Auto) [place] # (Auto) Eos # (Auto) Baso # (Auto) WBC Differential Differential Comment PT INR APTT Sodium Potassium Chloride Carbon Dioxide Anion Gap BUN Creatinine Estimated GFR Random Glucose Calcium Magnesium Total Bilirubin AST ALT Alkaline Phosphatase Total Creatine Kinase Troponin I B-Natriuretic Peptide 710 H Total Protein Albumin - Imaging Impressions Chest X-Ray 05/23/18 09:11 CONCLUSION: Mild bilateral pleural effusions. Mild prominence of interstitium in the perihilar regions especially on the left which may represent pulmonary venous hypertension. Borderline cardiomegaly. Assessment and Plan - Plan Acute exacerbation of congestive heart failure -likely diastolic BNP is elevated to 710, chest x-ray significant for probable CHF Echocardiogram with EF 50-55%. continue Lasix 40 mg IV every 12 hours Upon discharge consider torsemide 10 mg twice daily. Patient is currently on room air. -Patient follows up with Dr. Guidry ([facility]). Atrial fibrillation Continue metoprolol tartrate 50 mg twice daily for rate control Patient reports some GI bleed which probably is related to hemorrhoids. Given patient's age, weight, creatinine, it would be reasonable to reduce apixaban to 2.5 mg twice daily. Probable hemorrhoidal bleed Patient's hemoglobin is 13.9. MCV 101.0 could be related to daily alcohol abuse. We will recommend outpatient GI follow-up. Along with apixaban, we will start patient on Protonix 40 mg daily. Avoid NSAIDs. -check CBC tomorrow. Acute kidney injury Baseline creatinine appears to be around 1.2. On admission 1.45.Continue Lasix as better perfusion, creatinine might improve. Alcohol use Patient drinks 1 glass of wine daily. Full code. Apixaban Discussed Condition With: the patient and her son. Discharge Planning: home tomorrow if stable.
[2018-05-24] MEDS: dilTIAZem CD 240 MG Capsule PO SCH (09:12)
[2018-05-24] MEDS: Metoprolol Tartrate 50 MG Tablet PO SCH ×2 (09:13→20:48)
[2018-05-25 08:40] LABS: Hematocrit 44.2 % (35.0-46.0); Hemoglobin 14.4 gm/dL (11.6-15.3); Mean Corpuscular HGB Conc 32.7 % (32.0-36.0); Mean Corpuscular Hemoglobin 33.1 pg (27.0-34.0); Mean Corpuscular Volume 101.2 fL (80.0-100.0); Mean Platelet Volume 8.8 fL (7.0-11.0); Platelet Count 324 th/mm3 (150-450); Red Blood Count 4.37 mil/mm3 (4.00-5.30); Red Cell Distribution Width 15.3 % (11.6-17.2); White Blood Count 7.9 th/mm3 (4.0-11.0)
--- NOTE | 2018-05-25 08:41 | P.PNIM ---
Subjective Interval history: f/u; CHF in no acute distress. no sob/ or chest pain. swelling of the legs has improved. no new complaints. son at the bedside. Physical Exam Vital signs: Vital Signs 05/24/18 12:00 05/24/18 16:00 05/24/18 20:00 Temperature 97.7 F 97.9 F 97.8 F Pulse Rate 113 H 98 H 88 Respiratory Rate 16 16 16 Blood Pressure 111/74 130/80 127/66 Pulse Oximetry 97 96 95 05/25/18 00:00 05/25/18 04:00 Temperature 98.2 F 97.5 F L Pulse Rate 102 H 99 H Respiratory Rate 18 16 Blood Pressure 104/57 L 123/78 Pulse Oximetry 96 95 Intake & Output 05/24/18 05/25/18 05/25/18 18:59 06:59 18:59 Intake Total 1200 / 1200 Balance 1200 / 1200 Intake: Oral 1200 / 1200 Other: # Voids 5 2 Date of Last Bowel Movement 05/24/18 05/24/18 # Bowel Movements 1 - Constitutional no acute distress - Routine Respiratory Exam Present: CTA bilaterally - Routine Cardiovascular Exam Present: RRR - Routine Abdominal Exam Present: soft - Routine Extremities Exam Comments: pedal edema has improved. - Routine Neurological Exam Present: alert, oriented X3 Results - Labs CBC & Chem 7: 05/25/18 06:49 05/24/18 07:01 Assessment and Plan - Plan Acute exacerbation of congestive heart failure -likely diastolic BNP is elevated to 710, chest x-ray significant for probable CHF Echocardiogram with EF 50-55%. treated with Lasix 40 mg IV every 12 hours Upon discharge consider torsemide 10 mg twice daily. Patient is currently on room air. -Patient follows up with Dr. Guidry ([facility]). Atrial fibrillation Continue metoprolol tartrate 50 mg twice daily for rate control Patient reports some GI bleed which probably is related to hemorrhoids. Given patient's age, weight, creatinine, it would be reasonable to reduce apixaban to 2.5 mg twice daily. Probable hemorrhoidal bleed Patient's hemoglobin is 13.9. MCV 101.0 could be related to daily alcohol abuse. We will recommend outpatient GI follow-up. Along with apixaban, we will start patient on Protonix 40 mg daily. Avoid NSAIDs. -check CBC today. Acute kidney injury- improved. Baseline creatinine appears to be around 1.2. Alcohol use Patient drinks 1 glass of wine daily. Full code. Apixaban Discharge Planning: dc home today- pending PT evaluation and CBC. see med list. f/u; pcp and cardiology. d/w the patient and her son. d/w the RN.
--- NOTE | 2018-05-25 08:45 | P.DS ---
Date of admission: 05/23/18 10:41 Primary care physician: Meenakshi Sandoval MD Brief History from admission: Ms. Zeng is a pleasant 87-year-old female with a history of atrial fibrillation, diastolic congestive heart failure who presents to the emergency department due to worsening shortness of breath as well as leg swelling. Patient reports that since October 2017, her ability to walk due to dyspnea as well as leg swelling have been getting worse. In the last 1-3 weeks, she has been particularly very dyspneic and unable to even go to her mailbox without getting short of breath. She denies any chest pain but reports cough. She reports orthopnea. Denies any fever or chills. Denies any abdominal pain, changes in bowel or bladder habits. However, she does report occasional bright red blood during bowel movements. Past medical history: Atrial fibrillation, congestive heart failure Past surgical history: Hysterectomy at age 41, sinus surgery Social history: Patient does not smoke but drinks 1 glass of red wine every day. Family history: No family history of Alzheimer's or Parkinson's. DS: Medications - Discharge Medications Prescriptions: apixaban [Eliquis] 2.5 mg PO BID 30 Days #60 tab torsemide 10 mg PO DAILY 30 Days #30 tab DS: Summary Hospital Course: Acute exacerbation of congestive heart failure -likely diastolic BNP is elevated to 710, chest x-ray significant for probable CHF Echocardiogram with EF 50-55%. treated with Lasix 40 mg IV every 12 hours Upon discharge consider torsemide 10 mg daily. Patient is currently on room air. -Patient follows up with Dr. Guidry ([facility]). Atrial fibrillation Continue metoprolol tartrate 50 mg twice daily for rate control Patient reports some GI bleed which probably is related to hemorrhoids. Given patient's age, weight, creatinine, it would be reasonable to reduce apixaban to 2.5 mg twice daily. Probable hemorrhoidal bleed Patient's hemoglobin is 13.9. MCV 101.0 could be related to daily alcohol abuse. We will recommend outpatient GI follow-up. Along with apixaban, we will start patient on Protonix 40 mg daily. Avoid NSAIDs. Acute kidney injury- improved. Baseline creatinine appears to be around 1.2. Alcohol use Patient drinks 1 glass of wine daily. - Time Spent with Patient Total time spent providing and/or coordinating discharge services: Less than 30 minutes - Quality: VTE Deep Vein Thrombosis/Pulmonary Embolism Present on Admission: No Exam Vital signs: Vital Signs 05/24/18 12:00 05/24/18 16:00 05/24/18 20:00 Temperature 97.7 F 97.9 F 97.8 F Pulse Rate 113 H 98 H 88 Respiratory Rate 16 16 16 Blood Pressure 111/74 130/80 127/66 Pulse Oximetry 97 96 95 05/25/18 00:00 05/25/18 04:00 Temperature 98.2 F 97.5 F L Pulse Rate 102 H 99 H Respiratory Rate 18 16 Blood Pressure 104/57 L 123/78 Pulse Oximetry 96 95 Intake & Output 05/24/18 05/25/18 05/25/18 18:59 06:59 18:59 Intake Total 1200 / 1200 Balance 1200 / 1200 Intake: Oral 1200 / 1200 Other: # Voids 5 2 Date of Last Bowel Movement 05/24/18 05/24/18 # Bowel Movements 1 - Constitutional no acute distress - Routine Respiratory Exam Present: CTA bilaterally - Routine Cardiovascular Exam Present: RRR - Routine Abdominal Exam Present: soft - Routine Extremities Exam Comments: pedal edema has improved. - Routine Neurological Exam Present: alert, oriented X3 Results Procedures completed during hospitalization: none. Labs on day of discharge: Labs from last 24 hours 05/25/18 06:49 WBC 7.9 RBC 4.37 Hgb 14.4 Hct 44.2 MCV 101.2 H MCH 33.1 MCHC 32.7 RDW 15.3 Plt Count 324 MPV 8.8 - Impressions ITS Impressions Chest X-Ray 05/23/18 09:11 CONCLUSION: Mild bilateral pleural effusions. Mild prominence of interstitium in the perihilar regions especially on the left which may represent pulmonary venous hypertension. Borderline cardiomegaly. Discharge Plan - Discharge Disposition Patient Disposition: W/Home Health Service - Discharge Condition Condition: Fair - Physicians Team Primary Care Provider: Meenakshi Sandoval Attending Provider: Anton Monzon Other Providers: Ubaldo Conner
[2018-05-25] MEDS: Metoprolol Tartrate 50 MG Tablet PO SCH (09:48)
[2018-05-25] MEDS: dilTIAZem CD 240 MG Capsule PO SCH (09:48)
[2018-05-25] MEDS ORDERED: Metoprolol Tartrate 25 MG Tablet PO ONE (12:30)
--- NOTE | 2018-05-25 16:21 | P.DCO ---
- Home Health Nursing Order: Medical education, Signs/symptoms of disease process, CHF education, Medication education-adverse effect, Nursing assessment with vital signs - Case Management Consult Case Management Consult-Home Health: Yes - Certification I have seen patient Abbie Zeng on 05/25/18. My clinical findings support the need for the requested home health care services because: Patient has SOB I certify that my clinical findings support that this patient is homebound because: Poor cardiac reserve
[2018-05-25 16:32] VITALS: BP 119/67; PULSE 97; RESP 20; TEMP 97.5; O2SAT 95
[2018-05-25] MEDS ORDERED: Metoprolol Tartrate 25 MG Tablet PO SCH (21:00)
== END 2018-05-25 18:00 | disposition home health service (06) ==
LOC: NEPC 08:36 → NEDA 10:41 → H7ONC 14:30
PROVIDERS: ADMIT Internal Medicine; ATTEND Internal Medicine